=== PATIENT | male | born 1935 | race Caucasian/White ===

== ENCOUNTER 2022-07-29 08:07 | Day surgery (SDC) | payer MEDICARE, OTHER ==
[2022-07-27 11:59] LABS: BUN/Creatinine Ratio 26.7 (10.0-20.0); Calcium 9.8 mg/dL (8.5-10.1); Potassium 4.3 mmol/L (3.5-5.1)
[2022-07-27 12:00] LABS: INR 1.25 (0.9-1.15); Partial Thromboplastin Time 34.5 sec (24.6-33.4)
[2022-07-27 12:16] LABS: Basophils # (auto) 0.1 10 ^3/uL (0-0.2); Basophils % (auto) 0.8 % (0.0-2.0); Eosinophils # (auto) 0.1 10 ^3/uL (0-0.8); Eosinophils % (auto) 1.7 % (0.0-7.0); Hematocrit 45.6 % (41.0-53.0); Hemoglobin 16.3 g/dL (13.5-17.5); Lymphocytes # (auto) 1.2 10 ^3/uL (0.4-5.4); Lymphocytes % (auto) 16.1 % (10.0-50.0); Mean Corpuscular Hemoglobin 31.7 pg (28.0-32.0); Mean Corpuscular Hgb Conc. 35.8 g/dL (32.0-36.0); Mean Corpuscular Volume 88.5 fL (80.0-100.0); Monocytes # (auto) 0.8 10 ^3/uL (0-1.3); Monocytes % (auto) 11.1 % (0.0-12.0); Neutrophils # (auto) 5.1 10 ^3/uL (1.6-8.6); Neutrophils % (auto) 70.3 % (37.0-80.0); Nucleated Red Blood Cells % 0.3 %; Red Blood Cells 5.15 10^6/uL (4.5-5.90); White Blood Cell 7.3 10^3/uL (4.4-10.8)
[~2022-07-29] VITALS: Ht 182.9 cm; Wt 80.7 kg
[~2022-07-29 08:07] MED LIST: AMIO200T33 PO; CALC1TAB64 PO; CHOL20007 PO; FINA5TAB4 PO; FLEC100T PO; GABA100C9 PO; LIDO5PAD8 EX; METO-6 PO; MULT-928 PO; PROBCAP38 PO; RIVA20TA PO; TRIA1OIN2 EX
[2022-07-29] MEDS ORDERED: fentaNYL CITRATE 100 MCG/2 ML VL IV ONE (08:30)
[2022-07-29] MEDS ORDERED: MIDAZOLAM HCL 2MG/2ML 2ml VIAL (1mg/ml) IV ONE (08:30)
[2022-07-29] MEDS ORDERED: diphenhdrAMINE HCL 50 MG/1 ML VL IV ONE (08:30)
== END 2022-07-29 10:33 | disposition home or self-care (01) ==
LOC: CATH 08:07
PROVIDERS: ATTEND Internal Medicine Cardiovascular Disease
DX: I48.91 Unspecified atrial fibrillation (principal); Z79.01 Long term (current) use of anticoagulants; I10 Essential (primary) hypertension; E78.5 Hyperlipidemia, unspecified; N40.0 Benign prostatic hyperplasia without lower urinary tract symptoms; Z79.899 Other long term (current) drug therapy; G89.4 Chronic pain syndrome; Z20.822 Contact with and (suspected) exposure to COVID-19
CPT/HCPCS: 36415; 80048; 85025; 85610; 85730; 92960; 93005; J2250; J3010; U0003